=== PATIENT | male | born 1930 | race Caucasian/White ===

== ENCOUNTER → 2016-08-07 | Outpatient (REF) | payer MEDICARE, BC | LOC: M LAB REF 17:01 | PROVIDERS: ATTEND Surgery | DX: C44.519 Basal cell carcinoma of skin of other part of trunk (principal) ==

== ENCOUNTER → 2017-11-26 | Outpatient (REF) | payer MEDICARE, BC | LOC: M LAB REF 09:11 | DX: C44.612 Basal cell carcinoma of skin of right upper limb, including shoulder (principal) | CPT/HCPCS: 88305 ==

== ENCOUNTER → 2019-06-30 | Outpatient (CLI) | payer MEDICARE, BC | LOC: M OUTALCOH 10:02 | PROVIDERS: ATTEND Psychiatry & Neurology Addiction Medicine | DX: F10.20 Alcohol dependence, uncomplicated (principal) ==

== ENCOUNTER 2019-07-11 11:30 | Outpatient (RCR) | payer MEDICARE, BC | END 2019-07-15 | LOC: M OUTALCOH 11:30 | PROVIDERS: ATTEND Psychiatry & Neurology Addiction Medicine | DX: F10.20 Alcohol dependence, uncomplicated (principal) ==

== ENCOUNTER 2019-07-22 16:09 | Outpatient (RCR) | payer MEDICARE, BC | END 2019-08-14 | LOC: M OUTALCOH 16:09 | PROVIDERS: ATTEND Psychiatry & Neurology Addiction Medicine | DX: F10.20 Alcohol dependence, uncomplicated (principal) ==